=== PATIENT | female | born 1990 | race African-American/Black ===

== ENCOUNTER 2016-12-05 05:24 | Day surgery (SDC) | payer BC ==
[2016-11-30 10:32] LABS: ABSOLUTE BASOPHILS # (AUTO) 0.1 10^3/uL (0.0-0.2); ABSOLUTE EOSINOPHILS # (AUTO) 0.1 10^3/uL (0.0-0.6); ABSOLUTE MONOCYTES (AUTO) 0.7 10^3/uL (0.1-1.4); ABSOLUTE NEUT (AUTO) 4.5 10^3/uL (1.7-8.2); BASOPHILS % (AUTO) 0.9 % (0-2); HEMATOCRIT 36.4 % (36.0-47.0); HEMOGLOBIN 12.3 g/dL (12.0-15.5); HGB HCT DIFFERENCE 0.5; LYMPHOCYTES % (AUTO) 26.7 % (13-45); MEAN CORPUSCULAR HGB CONC 33.7 g/dL (32.0-36.0); MEAN CORPUSCULAR VOLUME 92 fl (80-97); MONOCYTES % (AUTO) 9.8 % (3-13); RED BLOOD COUNT 3.96 10^6/uL (3.72-5.28); RED CELL DISTRIBUTION WIDTH 13.7 % (11.5-14.0); SEGMENTED NEUTROPHILS % (AUTO) 61.6 % (42-78); WHITE BLOOD COUNT 7.3 10^3/uL (4.0-10.5)
[2016-11-30 10:34] LABS: APPEARANCE,URINE CLEAR; BILIRUBIN,URINE NEGATIVE (NEGATIVE); GLUCOSE, URINE NEGATIVE (NEGATIVE); KETONES,URINE NEGATIVE (NEGATIVE); LEUKOCYTE ESTERASE,URINE TRACE (NEGATIVE); NITRITE,URINE NEGATIVE (NEGATIVE); PROTEIN,URINE NEGATIVE (NEGATIVE); URINE SPECIFIC GRAVITY 1.005; UROBILINOGEN,URINE NEGATIVE mg/dL (<2.0)
[2016-11-30 11:06] LABS: ALANINE AMINOTRANSFERASE 33 U/L (9-52); ALBUMIN 4.5 g/dL (3.5-5.0); ALKALINE PHOSPHATASE 46 U/L (38-126); ANION GAP 8 (5-19); ASPARTATE AMINO TRANSFERASE 25 U/L (14-36); BILIRUBIN,DIRECT 0.4 mg/dL (0.0-0.4); BILIRUBIN,TOTAL 0.7 mg/dL (0.2-1.3); BLOOD UREA NITROGEN 11 mg/dL (7-20); CALCIUM 9.2 mg/dL (8.4-10.2); CARBON DIOXIDE 27 mmol/L (22-30); CHLORIDE 104 mmol/L (98-107); CREATININE RESULT 0.69 mg/dL (0.52-1.25); GLUCOSE 79 mg/dL (75-110); POTASSIUM 4.3 mmol/L (3.6-5.0); SODIUM 139.1 mmol/L (137-145); TOTAL PROTEIN 7.7 g/dL (6.3-8.2)
[~2016-12-05 05:24] MED LIST: LACTATED RINGERS 1000 ML IV PRN; LIDOCAINE 0.5% INJ-PF (5 MG/ML) 50 ML SDV SUBCUT PRN
[2016-12-05] MEDS ORDERED: BUPIVACAINE HCL 0.25 % INJ/PF (2.5 MG/1 ML) 30 ML VIAL ONE (06:33)
[2016-12-05] MEDS ORDERED: FENTANYL CITRATE INJ/PF 250 MCG/5 ML AMPULE ONE (06:53)
[2016-12-05] MEDS ORDERED: ACETAMINOPHEN 100 ML IV ONE (06:54)
[2016-12-05] MEDS ORDERED: PROPOFOL INJ 200 MG/20 ML VIAL IV ONE (06:54)
[2016-12-05] MEDS ORDERED: MIDAZOLAM 2 MG/2 ML INJ ONE (06:54)
[2016-12-05] MEDS ORDERED: DEXAMETHASONE SOD PHOSPHATE INJ 4 MG/1 ML VIAL ONE (06:54)
[2016-12-05] MEDS ORDERED: ONDANSETRON HCL INJ/PF 4 MG/2 ML SDV ONE (06:54)
[2016-12-05] MEDS ORDERED: DIPHENHYDRAMINE HCL 50 MG/ML VIAL IV PRN (07:54)
[2016-12-05] MEDS ORDERED: MORPHINE SULFATE 10 MG/ML INJ IV PRN (07:54)
[2016-12-05] MEDS ORDERED: FENTANYL CITRATE INJ/PF 100 MCG/2 ML AMPUL IV PRN ×3 (07:54)
[2016-12-05] MEDS ORDERED: PROMETHAZINE HCL INJ 25 MG/1 ML VIAL IV PRN ×3 (07:54→08:50)
[2016-12-05] MEDS ORDERED: MEPERIDINE HCL/PF INJ 25 MG/1 ML DISP.SYRIN IV PRN (07:54)
[2016-12-05] MEDS: FENTANYL CITRATE INJ/PF 100 MCG/2 ML AMPUL ONE ×2 (08:25→08:35)
[2016-12-05] MEDS ORDERED: OXYCODONE-ACETAMINOPHEN 5-325 MG TABLET PO PRN ×2 (08:49→08:50)
[2016-12-05] MEDS: DIPHENHYDRAMINE HCL 50 MG/ML VIAL ONE ×2 (08:50→09:00)
--- NOTE | 2016-12-05 09:03 | OPERATIVE REPORT E ---
Operative Report NAME: JOCELYN ZENDEJAS : 1990 AGE: 26Y DATE OF SURGERY: 12/05/2016 ROOM: PREOPERATIVE DIAGNOSES: 1. Pelvic pain. 2. Dysfunctional uterine bleeding. POSTOPERATIVE DIAGNOSES: 1. Pelvic pain. 2. Dysfunctional uterine bleeding. 3. Adenomyosis uteri. 4. Endometriosis. 5. Hydrosalpinx, status post right tubal, left tubal via Filshie clips and Hulka clips. 6. Uterine fibroids. OPERATION: 1. D and C. 2. Laparoscopy. SURGEON: VIKASH GA M.D. ANESTHESIA: General and 0.25% Marcaine. ESTIMATED BLOOD LOSS: Negligible. PERTINENT HISTORY AND OPERATIVE FINDINGS: This is a 26-year-old multiparous 3, para 3 who had been having problems with chronic pelvic pain and dysfunctional bleeding since her last delivery. Came in to have a D and C and laparoscopy. Was aware of the risks and benefits. At the time of surgery, the uterus was enlarged with fibroids. It also was soft and boggy consistent with adenomyosis. There was pelvic endometriosis visualized. The right tube had been resected. There was a hydrosalpinx on the proximal end. The ovaries appeared to normal. The left tube had Hulka clips on it. The liver appeared to be normal. There was no evidence of ascites or scar tissue. As stated, there were fibroids and adenomyosis. Gallbladder also appeared to be normal. OPERATIVE PROCEDURE: The patient was brought into the operating room, placed on the table in a supine position, and inducted under general anesthesia. Following this she was repositioned in a dorsal lithotomy position, prepped and draped in a sterile fashion. After a timeout, the bladder was drained of 10 mL of clear urine. She had already urinated prior to coming back to the OR. Pelvic under anesthesia was then performed. Having accomplished this, a bivalve speculum was inserted. The cervix was grasped on its anterior lip with a single tooth tenaculum and dilated to a #6 Hegar dilator and curetted with a small sharp curette. The tissue was transferred to a formalin container and sent to pathology. The tenaculum probe was inserted. The other equipment was removed. Attention was turned toward the abdominal wall. A Veress needle was introduced umbilically and carried through the various layers until the abdominal cavity was entered. Upon entering the abdominal cavity, it was connected to the CO2. The opening pressure was 4 cm of water. The patient then had a pneumoperitoneum with CO2 to a pressure of 15 cm of water and a volume of 3.1 L. Having established a pneumoperitoneum, a small incision was made infraumbilically. Through this incision, a trocar and sleeve were inserted. The trocar was removed and through a sleeve, a laparoscope was inserted. A second incision was made suprapubically in the midline in a horizontal fashion. Through this incision, a trocar and sleeve were inserted. The trocar was removed and through a sleeve, a probe was inserted. The contents of the pelvis and abdomen were then video recorded with the above findings, i.e., uterine fibroids, adenomyosis uteri, endometriosis, right hydrosalpinx, status post tubal, left Hulka clips. Both ovaries appeared to be normal. There was no ascites. There was no scar tissue. The bowel and liver and gallbladder appeared to be normal. This terminated the procedure. The suprapubic sleeve was removed. There was no evidence of active bleeding. The laparoscope was removed. The CO2 was allowed to escape. The subumbilical sleeve was removed. Each incision had approximately 4 mL of 0.25% Marcaine injected. The fascia was closed in both the subumbilical and the suprapubic incisions with 0 Vicryl. The skin edges in the subumbilical incision were closed with a subcuticular 4-0 Prolene. The suprapubic incision skin was closed with interrupted using 4-0 Prolene. Attention was then turned back down to the pelvis. The tenaculum probe was removed. A speculum was inserted. There was no evidence of active bleeding. This terminated procedure. The patient was placed back in a supine position. Anesthesia was discontinued and patient was transferred to the recovery room in satisfactory condition. DICTATING PHYSICIAN: VIKASH GA M.D. [id number] PHY#: [id number] ID: [id number] JOB#: [id number] ACCT: [id number] cc:VIKASH GA M.D. >
[2016-12-05] MEDS ORDERED: NITROFURANTOIN MONOHYD/M-CRYST 100 MG CAPSULE PO ONE (10:00)
[2016-12-05 10:20] VITALS: BP 105/67
[2016-12-05] MEDS ORDERED: ROCURONIUM BROMIDE INJ 50 MG/5 ML VIAL IV ONE (11:52)
[2016-12-05] MEDS ORDERED: NEOSTIGMINE METHYLSULFATE 10 MG/10 ML VIAL ONE (11:52)
[2016-12-05] MEDS ORDERED: GLYCOPYRROLATE INJ 0.4 MG/2 ML VIAL ONE (11:52)
== END 2016-12-05 10:15 | disposition home or self-care (01) ==
LOC: OROUT 05:24
PROVIDERS: ATTEND Obstetrics & Gynecology
PROC: 0WJJ4ZZ Inspection of Pelvic Cavity, Percutaneous Endoscopic Approach (ICD-10-PCS; 2016-12-05)
PROC: 0UDB7ZX Extraction of Endometrium, Via Natural or Artificial Opening, Diagnostic (ICD-10-PCS; principal; 2016-12-05 07:30)
DX: R10.2 Pelvic and perineal pain (principal); N93.8 Other specified abnormal uterine and vaginal bleeding; N80.0 Endometriosis of uterus; N70.91 Salpingitis, unspecified; N70.11 Chronic salpingitis; D25.9 Leiomyoma of uterus, unspecified; J45.909 Unspecified asthma, uncomplicated; D64.9 Anemia, unspecified; Z88.5 Allergy status to narcotic agent; Z88.1 Allergy status to other antibiotic agents; Z79.51 Long term (current) use of inhaled steroids
CPT/HCPCS: 36415; 85025; 81025; 80053; 81001; 88305 ×2; 58120; 49320; J2250; J3490; J1100; J1200; J3010 ×2; J2405; J2704; J0131; J8499; 840

== ENCOUNTER 2017-04-11 05:21 | Day surgery (SDC) | payer BC ==
[2017-03-21 12:46] LABS: HEMOGLOBIN 12.5 g/dL (12.0-15.5); MEAN CORPUSCULAR HGB CONC 33.7 g/dL (32.0-36.0); MEAN CORPUSCULAR VOLUME 92 fl (80-97); PLATELET COUNT 257 10^3/uL (150-450); RED BLOOD COUNT 4.02 10^6/uL (3.72-5.28); RED CELL DISTRIBUTION WIDTH 13.6 % (11.5-14.0); WHITE BLOOD COUNT 8.3 10^3/uL (4.0-10.5)
--- NOTE | 2017-03-21 12:47 | RADIOLOGY REPORT (SQ) ---
EXAM DESCRIPTION: CHEST PA/LATERAL COMPLETED DATE/TIME: 03/21/2017 12:20 pm REASON FOR STUDY: PRE OP COMPARISON: None. TECHNIQUE: Frontal and lateral radiographic views of the chest acquired. NUMBER OF VIEWS: Two view. LIMITATIONS: None. FINDINGS: LUNGS AND PLEURA: No opacities, masses or pneumothorax. No pleural effusion. MEDIASTINUM AND HILAR STRUCTURES: No masses or contour abnormalities. HEART AND VASCULAR STRUCTURES: Heart normal size. No evidence for failure. BONES: No acute findings. HARDWARE: None in the chest. OTHER: No other significant finding. IMPRESSION: NO SIGNIFICANT RADIOGRAPHIC FINDING IN THE CHEST. TECHNICAL DOCUMENTATION: JOB ID: [id number] [employer]- All Rights Reserved
[2017-03-21 12:51] LABS: APPEARANCE,URINE CLEAR; BILIRUBIN,URINE NEGATIVE (NEGATIVE); COLOR,URINE YELLOW; GLUCOSE, URINE NEGATIVE (NEGATIVE); KETONES,URINE NEGATIVE (NEGATIVE); LEUKOCYTE ESTERASE,URINE NEGATIVE (NEGATIVE); NITRITE,URINE NEGATIVE (NEGATIVE); PROTEIN,URINE NEGATIVE (NEGATIVE); URINE SPECIFIC GRAVITY 1.014; UROBILINOGEN,URINE NEGATIVE mg/dL (<2.0)
[2017-03-21 13:14] LABS: ANION GAP 8 (5-19); BLOOD UREA NITROGEN 9 mg/dL (7-20); CALCIUM 9.7 mg/dL (8.4-10.2); CARBON DIOXIDE 29 mmol/L (22-30); CHLORIDE 102 mmol/L (98-107); GLUCOSE 84 mg/dL (75-110); POTASSIUM 4.4 mmol/L (3.6-5.0); SODIUM 138.7 mmol/L (137-145)
--- NOTE | 2017-03-21 13:17 | EKG REPORT ---
SEVERITY:- NORMAL ECG - SINUS RHYTHM : Confirmed by: Asya Ramirez MD 21-Mar-2017 13:16:32
[~2017-04-11 05:21] MED LIST changes: +CEFAZOLIN 1 GM/D5W RTU 1 GM/50 ML RTUPB IV PRN
[2017-04-11] MEDS ORDERED: LIDOCAINE 1%/EPINEPHRINE INJ 20 ML VIAL ONE (06:30)
[2017-04-11] MEDS ORDERED: ALBUTEROL SULFATE 0.083% NEB 2.5 MG/3 ML AMPUL NEB ONE (06:32)
[2017-04-11] MEDS ORDERED: EPHEDRINE SULFATE INJ 50 MG/1 ML AMPULE ONE (06:49)
[2017-04-11] MEDS ORDERED: MIDAZOLAM 2 MG/2 ML INJ ONE (06:49)
[2017-04-11] MEDS ORDERED: HYDROMORPHONE HCL INJ/PF 2 MG/ML AMPULE ONE (06:49)
[2017-04-11] MEDS ORDERED: ACETAMINOPHEN 100 ML IV ONE (06:49)
[2017-04-11] MEDS ORDERED: FENTANYL CITRATE INJ/PF 250 MCG/5 ML AMPULE ONE (06:49)
[2017-04-11] MEDS ORDERED: PROPOFOL INJ 200 MG/20 ML VIAL IV ONE (06:49)
[2017-04-11] MEDS ORDERED: DEXMEDETOMIDINE INJ 80 MCG/20 ML VIAL IV ONE (06:50)
[2017-04-11] MEDS ORDERED: MORPHINE SULFATE 10 MG/ML INJ IV PRN (07:49)
[2017-04-11] MEDS ORDERED: ONDANSETRON HCL INJ/PF 4 MG/2 ML SDV IV PRN (07:49)
[2017-04-11] MEDS ORDERED: MEPERIDINE HCL/PF INJ 25 MG/1 ML DISP.SYRIN IV PRN (07:49)
[2017-04-11] MEDS ORDERED: PROMETHAZINE HCL INJ 25 MG/1 ML VIAL IV PRN ×2 (07:49)
[2017-04-11] MEDS ORDERED: DIPHENHYDRAMINE HCL 50 MG/ML VIAL IV PRN (07:49)
[2017-04-11] MEDS ORDERED: FENTANYL CITRATE INJ/PF 100 MCG/2 ML AMPUL IV PRN ×3 (07:49)
[2017-04-11] MEDS: FENTANYL CITRATE INJ/PF 100 MCG/2 ML AMPUL ONE ×4 (08:58→09:13)
--- NOTE | 2017-04-11 09:03 | OPERATIVE REPORT E ---
Operative Report NAME: JOCELYN ZENDEJAS : 1990 AGE: 26Y DATE OF SURGERY: 04/11/2017 ROOM: PREOPERATIVE DIAGNOSIS: Chronic pelvic pain, adenomyosis and hydrosalpinges. POSTOPERATIVE DIAGNOSIS: Chronic pelvic pain, adenomyosis and hydrosalpinges. OPERATION: Total vaginal hysterectomy and bilateral salpingectomy. SURGEON: CARON CHILDS M.D. ANESTHESIA: General endotracheal. COMPLICATIONS: None. ESTIMATED BLOOD LOSS: 100 mL. FINDINGS: That of normal-appearing tubes and ovaries, detached Filshie clips in the cul-de-sac. Uterus normal size, shape and consistency. Normal cervix. INDICATIONS FOR PROCEDURE: The patient had undergone failed outpatient management of chronic pelvic pain and had a diagnostic scope demonstrating hydrosalpinx. Cul-de-sac was clear. Vaginal hysterectomy was entertained and discussed with the patient. The usual risks of bleeding, infection, anesthesia, damage to organs or tissue were discussed and the patient understood. PROCEDURE: The patient was taken to the operating room and placed in modified lithotomy position after adequate anesthesia was ascertained, prepped and draped in the usual manner for a vaginal hysterectomy. After surgical time out was performed EUA was performed. Antibiotics had been given. Posterior colpotomy incision was made and uterosacral ligaments were crossclamped, cut, suture ligated and held. Cervix was circumscribed and using a LigaSure Advance device the cardinal ligaments were cauterized. Uterine vessels were cauterized. This extended all the way up to the level of the utero-ovarian ligament which was suture ligated, free tied and cauterized. Cervix and uterus were handed off the operative field and attention was then turned to the tubes which were both brought into the operative field, handled in a similar fashion with a clamp placed, cautery for excision and a ligature placed. Good hemostasis was assured at this aspect of the procedure. The upper pedicles were freed. The vagina was then closed in an anterior/posterior fashion with good hemostasis noted. A Black culdoplasty stitch was placed, held and tied at the completion of the procedure. After the vagina was closed *------* urinary output was excellent. The patient was awakened and taken to recovery in stable condition. DICTATING PHYSICIAN: CARON CHILDS M.D. [id number] PHY#: [id number] ID: [id number] JOB#: [id number] ACCT: [id number] cc:CARON CHILDS M.D. >
[2017-04-11] MEDS ORDERED: PROMETHAZINE HCL INJ 25 MG/1 ML VIAL IM PRN (09:07)
[2017-04-11] MEDS ORDERED: HYDROMORPHONE HCL INJ/PF 2 MG/ML AMPULE INJ PRN (09:41)
[2017-04-11] MEDS ORDERED: ALBUTEROL SULFATE HFA (90 MCG/PUFF) 8 GM MDI (1 MDI/ER DISP) IH PRN (10:10)
[2017-04-11] MEDS ORDERED: ALBUTEROL SULFATE HFA (90 MCG/PUFF) 200 PUFF/8.5 GM MDI IH PRN (10:35)
[2017-04-11] MEDS: IBUPROFEN 800 MG TABLET PO SCH ×3 (10:36→17:15)
[2017-04-11] MEDS ORDERED: DIPHENHYDRAMINE HCL 25 MG CAPSULE ONE (11:14)
[2017-04-11] MEDS ORDERED: DIPHENHYDRAMINE HCL 25 MG CAPSULE PO PRN (12:07)
[2017-04-11] MEDS: CEFAZOLIN 1 GM/D5W RTU 1 GM/50 ML RTUPB IV SCH ×2 (12:54→17:16)
[2017-04-11] MEDS: OXYCODONE-ACETAMINOPHEN 5-325 MG TABLET PO PRN ×2 (14:08→20:54)
[2017-04-11] MEDS ORDERED: LIDOCAINE 2% INJ-PF (20 MG/ML) 2 ML AMPUL ONE (15:02)
[2017-04-11] MEDS ORDERED: METOCLOPRAMIDE HCL INJ/PF 10 MG/2 ML SDV ONE (15:02)
[2017-04-11] MEDS ORDERED: KETOROLAC TROMETHAMINE 60 MG/2 ML SDV ONE (15:02)
[2017-04-11] MEDS ORDERED: DEXAMETHASONE SOD PHOSPHATE INJ 4 MG/1 ML VIAL ONE (15:02)
[2017-04-11] MEDS ORDERED: GLYCOPYRROLATE INJ 0.4 MG/2 ML VIAL ONE (15:02)
[2017-04-11] MEDS ORDERED: ONDANSETRON HCL INJ/PF 4 MG/2 ML SDV ONE (15:02)
[2017-04-12] MEDS: OXYCODONE-ACETAMINOPHEN 5-325 MG TABLET PO PRN ×2 (04:35→10:27)
[2017-04-12 07:29] LABS: HEMATOCRIT 33.5 % (36.0-47.0); HEMOGLOBIN 11.1 g/dL (12.0-15.5); MEAN CORPUSCULAR HEMOGLOBIN 30.8 pg (27.0-33.4); MEAN CORPUSCULAR HGB CONC 33.3 g/dL (32.0-36.0); MEAN CORPUSCULAR VOLUME 93 fl (80-97); PLATELET COUNT 233 10^3/uL (150-450); RED BLOOD COUNT 3.62 10^6/uL (3.72-5.28); RED CELL DISTRIBUTION WIDTH 13.5 % (11.5-14.0); WHITE BLOOD COUNT 16.6 10^3/uL (4.0-10.5)
[2017-04-12 09:28] VITALS: BP 107/50
[2017-04-12] MEDS: IBUPROFEN 800 MG TABLET PO SCH (09:37)
== END 2017-04-12 11:40 | disposition home or self-care (01) ==
LOC: OROUT 05:21 → 2S 09:50 → OROUT 04-12 11:40
PROVIDERS: ATTEND Specialist
PROC: 0UB77ZZ Excision of Bilateral Fallopian Tubes, Via Natural or Artificial Opening (ICD-10-PCS; 2017-04-11)
PROC: 0UT97ZZ Resection of Uterus, Via Natural or Artificial Opening (ICD-10-PCS; principal; 2017-04-11 07:15)
DX: D25.2 Subserosal leiomyoma of uterus (principal); N80.0 Endometriosis of uterus; N70.11 Chronic salpingitis
CPT/HCPCS: 58262; 93005; 86900 ×2; 86901 ×2; 36415 ×2; 86850 ×2; 85027 ×2; 81025; 80048; 81001; 88307 ×2; 71046; 94799; 93010; J2250; J0690; J1100; J1885; J3010 ×2; J3490 ×3; J2765; J1170; J2405; J2704; J0131; 944

== ENCOUNTER 2017-09-22 17:29 | Emergency (ER) | payer BC ==
--- NOTE | 2017-09-22 18:01 | ER Document Report ---
HPI - HPI Pain Level: 4 - REPRODUCTIVE Reproductive: DENIES: : Past Medical History - Social History Family History: None - Past Medical History Cardiac Medical History: Denies: Hx Coronary Artery Disease, Hx Heart Attack, Hx Hypertension Pulmonary Medical History: Reports: Hx Asthma Denies: Hx Bronchitis, Hx COPD, Hx Pneumonia Neurological Medical History: Denies: Hx Cerebrovascular Accident, Hx Seizures Musculoskeletal Medical History: Denies Hx Arthritis Past Surgical History: Reports: Hx Tubal Ligation - Immunizations Hx Diphtheria, Pertussis, Tetanus Vaccination: Yes - 2011 Hx Pneumococcal Vaccination: 06/21/13 Vertical Provider Document - INFECTION CONTROL TRAVEL OUTSIDE OF THE [place] IN LAST 30 DAYS: No Course - Vital Signs Vital signs: Temp Pulse Resp BP Pulse Ox 98.6 F 92 20 118/65 100 09/22/17 17:50 09/22/17 17:50 09/22/17 17:50 09/22/17 17:50 09/22/17 17:50 Discharge - Discharge Referrals: VIKASH GA MD [Primary Care Provider] - Follow up as needed
[2017-09-22] MEDS ORDERED: LORAZEPAM 1 MG TABLET PO ONE (18:50)
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
--- NOTE | 2017-09-22 19:17 | RADIOLOGY REPORT (SQ) ---
EXAM DESCRIPTION: CHEST 2 VIEWS COMPLETED DATE/TIME: 09/22/2017 7:08 pm REASON FOR STUDY: chest pain COMPARISON: None. EXAM PARAMETERS: NUMBER OF VIEWS: two views TECHNIQUE: Digital Frontal and Lateral radiographic views of the chest acquired. RADIATION DOSE: NA LIMITATIONS: none FINDINGS: LUNGS AND PLEURA: No opacities, masses or pneumothorax. No pleural effusion. MEDIASTINUM AND HILAR STRUCTURES: No masses or contour abnormalities. HEART AND VASCULAR STRUCTURES: Heart normal size. No evidence for failure. BONES: No acute findings. HARDWARE: None in the chest. OTHER: No other significant finding. IMPRESSION: NO ACUTE RADIOGRAPHIC FINDING IN THE CHEST. TECHNICAL DOCUMENTATION: JOB ID: [id number] [employer]- All Rights Reserved Reading location - IP/workstation name: [email or web address]
[2017-09-22 19:51] LABS: ABSOLUTE BASOPHILS # (AUTO) 0.1 10^3/uL (0.0-0.2); ABSOLUTE EOSINOPHILS # (AUTO) 0.1 10^3/uL (0.0-0.6); ABSOLUTE LYMPHOCYTES (AUTO) 2.8 10^3/uL (0.5-4.7); ABSOLUTE MONOCYTES (AUTO) 1.1 10^3/uL (0.1-1.4); ABSOLUTE NEUT (AUTO) 6.3 10^3/uL (1.7-8.2); BASOPHILS % (AUTO) 0.5 % (0-2); EOSINOPHILS % (AUTO) 0.9 % (0-6); HEMATOCRIT 40.8 % (36.0-47.0); HEMOGLOBIN 13.8 g/dL (12.0-15.5); LYMPHOCYTES % (AUTO) 27.2 % (13-45); MEAN CORPUSCULAR HGB CONC 33.9 g/dL (32.0-36.0); MEAN CORPUSCULAR VOLUME 91 fl (80-97); MONOCYTES % (AUTO) 10.6 % (3-13); PLATELET COUNT 304 10^3/uL (150-450); RED BLOOD COUNT 4.46 10^6/uL (3.72-5.28); RED CELL DISTRIBUTION WIDTH 13.4 % (11.5-14.0); SEGMENTED NEUTROPHILS % (AUTO) 60.8 % (42-78); TOTAL CELLS COUNTED % (AUTO) 100 %; WHITE BLOOD COUNT 10.4 10^3/uL (4.0-10.5)
[2017-09-22 20:09] LABS: ALANINE AMINOTRANSFERASE 20 U/L (9-52); ALBUMIN 4.8 g/dL (3.5-5.0); ALKALINE PHOSPHATASE 62 U/L (38-126); ANION GAP 15 (5-19); ASPARTATE AMINO TRANSFERASE 25 U/L (14-36); BILIRUBIN,DIRECT 0.2 mg/dL (0.0-0.4); BILIRUBIN,TOTAL 0.7 mg/dL (0.2-1.3); BLOOD UREA NITROGEN 14 mg/dL (7-20); CALCIUM 9.5 mg/dL (8.4-10.2); CARBON DIOXIDE 23 mmol/L (22-30); CHLORIDE 103 mmol/L (98-107); GLUCOSE 97 mg/dL (75-110); POTASSIUM 4.2 mmol/L (3.6-5.0); SODIUM 140.7 mmol/L (137-145); TOTAL PROTEIN 8.3 g/dL (6.3-8.2)
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
[2017-09-22 20:54] VITALS: BP 107/62
--- NOTE | 2017-09-22 22:29 | EKG REPORT ---
SEVERITY:- NORMAL ECG - SINUS RHYTHM : Confirmed by: Asya Ramirez MD 22-Sep-2017 22:29:07
== END 2017-09-22 20:53 | disposition home or self-care (01) ==
LOC: ER 17:29
DX: M79.1 Myalgia (principal); M54.89 Other dorsalgia; R07.1 Chest pain on breathing; R06.02 Shortness of breath; J45.909 Unspecified asthma, uncomplicated; Z87.891 Personal history of nicotine dependence; Z91.048 Other nonmedicinal substance allergy status; Z91.040 Latex allergy status; Z88.1 Allergy status to other antibiotic agents; Z88.5 Allergy status to narcotic agent
CPT/HCPCS: 36415; 71046; 80053; 84703; 85025; 85379; 93005; 93010; 99284

== ENCOUNTER 2019-05-23 17:37 | Emergency (ER) | payer BC ==
[2019-05-23 18:16] VITALS: BP 128/70
[2019-05-23] MEDS ORDERED: ALBUTEROL SULFATE 0.083% NEB 2.5 MG/3 ML AMPUL NEB ONE (19:09)
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
== END 2019-05-23 20:00 | disposition home or self-care (01) ==
LOC: ER 17:37
DX: J45.20 Mild intermittent asthma, uncomplicated (principal); F41.9 Anxiety disorder, unspecified; R07.89 Other chest pain; R06.02 Shortness of breath; Z91.048 Other nonmedicinal substance allergy status; Z91.040 Latex allergy status; Z88.1 Allergy status to other antibiotic agents; Z88.6 Allergy status to analgesic agent; Z88.5 Allergy status to narcotic agent
CPT/HCPCS: 94640; 99284

== ENCOUNTER 2019-07-31 12:58 | Emergency (ER) | payer BC ==
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
--- NOTE | 2019-07-31 14:35 | RADIOLOGY REPORT (SQ) ---
EXAM DESCRIPTION: CHEST 2 VIEWS IMAGES COMPLETED DATE/TIME: 07/31/2019 2:24 pm REASON FOR STUDY: chest pain COMPARISON: 09/22/2017 EXAM PARAMETERS: NUMBER OF VIEWS: two views TECHNIQUE: Digital Frontal and Lateral radiographic views of the chest acquired. RADIATION DOSE: NA LIMITATIONS: none FINDINGS: LUNGS AND PLEURA: No opacities, masses or pneumothorax. No pleural effusion. MEDIASTINUM AND HILAR STRUCTURES: No masses or contour abnormalities. HEART AND VASCULAR STRUCTURES: Heart normal size. No evidence for failure. BONES: No acute findings. HARDWARE: None in the chest. OTHER: No other significant finding. IMPRESSION: NO ACUTE RADIOGRAPHIC FINDING IN THE CHEST. TECHNICAL DOCUMENTATION: JOB ID: [id number] 2010 [employer]- All Rights Reserved Reading location - IP/workstation name: [email or web address]
[2019-07-31] MEDS ORDERED: KETOROLAC TROMETHAMINE INJ/PF 30 MG/1 ML SDV IV ONE (16:50)
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
--- NOTE | 2019-07-31 18:05 | RADIOLOGY REPORT (SQ) ---
EXAM DESCRIPTION: CTA CHEST IMAGES COMPLETED DATE/TIME: 07/31/2019 5:31 pm REASON FOR STUDY: cp/sob COMPARISON: None. TECHNIQUE: CT scan of the chest performed using helical scanning technique with dynamic intravenous contrast injection. Images reviewed with lung, soft tissue and bone windows. Reconstructed coronal and sagittal MPR images reviewed. Additional 3 dimensional post-processing performed to develop Maximal Intensity Projection images ([place] P). All images stored on PACS. All CT scanners at this facility use dose modulation, iterative reconstruction, and/or weight based d osing when appropriate to reduce radiation dose to as low as reasonably achievable (ALARA). [facility]: Dose Right [facility]: CareDose [facility]: Dose Right [facility]: Teradose 4D [facility]: Tresorit CONTRAST TYPE AND DOSE: contrast/concentration: Isovue 350.00 mg/ml; Total Contrast Delivered: 60.0 ml; Total Saline Delivered: 35.8 ml Contrast bolus optimized for the pulmonary arteries. Not diagnostic for the aorta. RENAL FUNCTION: None required. The patient is less than 50 years old. RADIATION DOSE: CT Rad equipment meets quality standard of care and radiation dose reduction techniq ues were employed. CTDIvol: 14.7 - 19.8 mGy. DLP: 561 mGy-cm. . LIMITATIONS: None. FINDINGS: LUNGS AND PLEURA: No masses, infiltrates, or pneumothorax. No pleural effusions or pleura l calcifications. AORTA AND GREAT VESSELS: No aneurysm. Contrast bolus not optimized for the aorta. HEART: No pericardial effusion. No significant coronary artery calcifications. PULMONARY ARTERIES: No emboli visualized in the main pulmonary arteries or the segmental branches. HILAR AND MEDIASTINAL STRUCTURES: A 2.6 cm mass in the sirena-subcarinal -azygoesophageal recess reg ions adjacent and lateral to the right side of the esophagus, axial image 49, series 3. Consideratio ns for this finding include lymphadenopathy. In the anterior mediastinum, a bilobed triangular-shaped well-circumscribed soft tissue density measu res 1.9 cm in diameter. Considerations for this finding includes the thymus. HARDWARE: None in the chest. UPPER ABDOMEN: No significant findings. Limited exam. THYROID AND OTHER SOFT TISSUES: The visualized thyroid gland is heterogenous in appearance with smal l hypoattenuated nodules suggested. BONES: No acute or significant finding. 3D MIPS: Confirm above findings. OTHER: No other significant finding. IMPRESSION: 1. No evidence for acute pulmonary emboli. 2. A bilobed triangular-shaped well-circumscribed soft tissue density in the anterior mediastinum. Considerations for this finding includes the thymus. 3. Soft tissue mass-like density suggested at the sirena - subcarinal-as ago esophageal recess regio ns, may represent lymphadenopathy. Correlation suggested. 4. The visualized thyroid gland is heterogenous in appearance with nodules present. Correlation wit h lab values and ultrasound. COMMENT: Quality ID # [id number]: Final reports with documentation of one or more dose reduction techniques (e.g., Automated exposure control, adjustment of the mA and/or kV according to patient size, use of iterative reconstruction technique) TECHNICAL DOCUMENTATION: JOB ID: [id number] 2010 [employer]- All Rights Reserved Reading location - IP/workstation name: [email or web address]
[2019-07-31 19:04] VITALS: BP 114/68
== END 2019-07-31 19:04 | disposition home or self-care (01) ==
LOC: ER 12:58
DX: R42 Dizziness and giddiness (principal); R22.2 Localized swelling, mass and lump, trunk; Z91.040 Latex allergy status; Z88.3 Allergy status to other anti-infective agents; Z88.6 Allergy status to analgesic agent
CPT/HCPCS: 99284; 96374; 71046; 71275; J1885

== ENCOUNTER → 2019-08-01 | Outpatient (CLI) | payer BC ==
--- NOTE | 2019-08-01 09:16 | EKG REPORT ---
SEVERITY:- NORMAL ECG - SINUS RHYTHM : Confirmed by: Jeff Lou 01-Aug-2019 09:15:33
[2019-08-01 09:29] LABS: ABSOLUTE EOSINOPHILS # (AUTO) 0.1 10^3/uL (0.0-0.6); ABSOLUTE LYMPHOCYTES (AUTO) 1.3 10^3/uL (0.5-4.7); ABSOLUTE MONOCYTES (AUTO) 0.6 10^3/uL (0.1-1.4); ABSOLUTE NEUT (AUTO) 3.5 10^3/uL (1.7-8.2); BASOPHILS % (AUTO) 0.7 % (0-2); EOSINOPHILS % (AUTO) 1.1 % (0-6); HEMATOCRIT 39.1 % (36.0-47.0); HEMOGLOBIN 13.4 g/dL (12.0-15.5); LYMPHOCYTES % (AUTO) 23.9 % (13-45); MEAN CORPUSCULAR HEMOGLOBIN 31.8 pg (27.0-33.4); MEAN CORPUSCULAR HGB CONC 34.2 g/dL (32.0-36.0); MEAN CORPUSCULAR VOLUME 93 fl (80-97); MONOCYTES % (AUTO) 10.2 % (3-13); PLATELET COUNT 261 10^3/uL (150-450); RED BLOOD COUNT 4.21 10^6/uL (3.72-5.28); RED CELL DISTRIBUTION WIDTH 13.8 % (11.5-14.0); SEGMENTED NEUTROPHILS % (AUTO) 64.1 % (42-78); TOTAL CELLS COUNTED % (AUTO) 100 %; WHITE BLOOD COUNT 5.5 10^3/uL (4.0-10.5)
[2019-08-01 09:50] LABS: ALBUMIN 4.7 g/dL (3.5-5.0); ALKALINE PHOSPHATASE 55 U/L (38-126); ANION GAP 7 (5-19); ASPARTATE AMINO TRANSFERASE 23 U/L (14-36); BILIRUBIN,TOTAL 0.6 mg/dL (0.2-1.3); BLOOD UREA NITROGEN 13 mg/dL (7-20); CALCIUM 9.4 mg/dL (8.4-10.2); CARBON DIOXIDE 26 mmol/L (22-30); CHLORIDE 106 mmol/L (98-107); GLUCOSE 96 mg/dL (75-110); POTASSIUM 4.7 mmol/L (3.6-5.0)
== END ==
LOC: OD 08:56
PROVIDERS: ATTEND Obstetrics & Gynecology
DX: R07.9 Chest pain, unspecified (principal); E07.9 Disorder of thyroid, unspecified
CPT/HCPCS: 36415; 80053; 84443; 85025; 93005; 93010

== ENCOUNTER 2019-08-19 16:23 | Emergency (ER) | payer BC ==
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
[2019-08-19 19:27] LABS: ABSOLUTE BASOPHILS # (AUTO) 0.1 10^3/uL (0.0-0.2); ABSOLUTE EOSINOPHILS # (AUTO) 0.1 10^3/uL (0.0-0.6); ABSOLUTE LYMPHOCYTES (AUTO) 2.4 10^3/uL (0.5-4.7); ABSOLUTE NEUT (AUTO) 5.6 10^3/uL (1.7-8.2); BASOPHILS % (AUTO) 0.6 % (0-2); HEMATOCRIT 39.3 % (36.0-47.0); HEMOGLOBIN 13.2 g/dL (12.0-15.5); LYMPHOCYTES % (AUTO) 26.1 % (13-45); MEAN CORPUSCULAR HEMOGLOBIN 31.5 pg (27.0-33.4); MEAN CORPUSCULAR HGB CONC 33.5 g/dL (32.0-36.0); MEAN CORPUSCULAR VOLUME 94 fl (80-97); MONOCYTES % (AUTO) 10.9 % (3-13); PLATELET COUNT 249 10^3/uL (150-450); RED BLOOD COUNT 4.19 10^6/uL (3.72-5.28); RED CELL DISTRIBUTION WIDTH 13.6 % (11.5-14.0); SEGMENTED NEUTROPHILS % (AUTO) 61.4 % (42-78); TOTAL CELLS COUNTED % (AUTO) 100 %; WHITE BLOOD COUNT 9.1 10^3/uL (4.0-10.5)
[2019-08-19 19:45] LABS: ALBUMIN 4.7 g/dL (3.5-5.0); ALKALINE PHOSPHATASE 50 U/L (38-126); ANION GAP 9 (5-19); ASPARTATE AMINO TRANSFERASE 24 U/L (14-36); BILIRUBIN,TOTAL 0.4 mg/dL (0.2-1.3); BLOOD UREA NITROGEN 10 mg/dL (7-20); CARBON DIOXIDE 24 mmol/L (22-30); CHLORIDE 106 mmol/L (98-107); GLUCOSE 97 mg/dL (75-110); POTASSIUM 3.8 mmol/L (3.6-5.0)
[2019-08-19 20:26] VITALS: BP 116/67
--- NOTE | 2019-08-20 00:25 | EKG REPORT ---
SEVERITY:- NORMAL ECG - SINUS RHYTHM : Confirmed by: Jeff Lou 20-Aug-2019 00:24:17
== END 2019-08-19 20:33 | disposition home or self-care (01) ==
LOC: ER 16:23
DX: Z20.828 Contact with and (suspected) exposure to other viral communicable diseases (principal); R06.02 Shortness of breath; R07.9 Chest pain, unspecified; Z88.1 Allergy status to other antibiotic agents; Z88.8 Allergy status to other drugs, medicaments and biological substances; J45.909 Unspecified asthma, uncomplicated
CPT/HCPCS: 93005; 99285; 36415; 85025; 87635; 80053; 83880; 93010; C9803

== ENCOUNTER → 2019-08-19 | Outpatient (CLI) | payer BC | LOC: OD 12:37 | PROVIDERS: ATTEND Obstetrics & Gynecology | DX: R07.9 Chest pain, unspecified (principal) ==